=== PATIENT | female | born 1965 | race African-American/Black ===

== ENCOUNTER 2018-07-22 14:55 | Outpatient (CLI) | payer OTHER ==
--- NOTE | 2018-07-22 16:03 | RAD ---
LEFT SHOULDER THREE VIEWS: History: Left shoulder pain. FINDINGS: There is some slight deformity to the greater tuberosity region of the humeral head, possibly related to an old dislocation. There are no signs of any acute fracture or dislocation. IMPRESSION: No evidence of acute injury. POS: [facility]
== END 2018-07-22 14:56 | disposition home or self-care (01) ==
LOC: NAV RAD 14:55
DX: M25.512 Pain in left shoulder (principal)

== ENCOUNTER 2023-03-01 18:58 | Emergency (ER) | payer OTHER, SELFPAY | END 2023-03-01 19:49 | disposition home or self-care (01) | LOC: NAV ERS 18:58 | DX: M17.11 Unilateral primary osteoarthritis, right knee (principal); I10 Essential (primary) hypertension ==

== ENCOUNTER 2023-06-13 19:09 | Emergency (ER) | payer OTHER | END 2023-06-13 20:12 | disposition home or self-care (01) | LOC: NAV ERS 19:09 | DX: M25.551 Pain in right hip (principal); I10 Essential (primary) hypertension; M19.90 Unspecified osteoarthritis, unspecified site; W18.09XA Striking against other object with subsequent fall, initial encounter; Z79.899 Other long term (current) drug therapy | CPT/HCPCS: 99283 ==